=== PATIENT | female | born 1955 | race Caucasian/White ===

== ENCOUNTER 2019-11-02 17:53 | Emergency (ER) | payer OTHER ==
[~2019-11-02] VITALS: Ht 154.9 cm; Wt 85.3 kg
[2019-11-02 18:22] VITALS: Ht 154.9 cm; Wt 85.3 kg
[2019-11-02 19:54] VITALS: BP 145/84
== END 2019-11-02 19:54 | disposition home or self-care (01) ==
LOC: ED 17:53
DX: M48.00 Spinal stenosis, site unspecified (principal)